=== PATIENT | female | born 1950 | race African-American/Black ===

== ENCOUNTER 2017-03-12 23:18 | Emergency (ER) | payer MEDICARE ==
[~2017-03-12] VITALS: Ht 157.5 cm; Wt 65.8 kg
[2017-03-13] VITALS: BP 81/39
[2017-03-13 00:28] LABS: BASOPHILS % (AUTO) 1.5 % (0.0-2.0); EOSINOPHILS % (AUTO) 0.1 % (0.0-3.0); LYMPHOCYTES % (AUTO) 6.1 % (20.0-45.0); MEAN CORPUSCULAR HEMOGLOBIN 26.4 PG (27.0-31.0); MEAN CORPUSCULAR HGB CONC 28.1 G/DL (32.0-36.0); MEAN CORPUSCULAR VOLUME 94 FL (80-99); MEAN PLATELET VOLUME 9.3 FL (6.5-10.1); MONOCYTES % (AUTO) 8.8 % (1.0-10.0); NEUTROPHILS % (AUTO) 83.6 % (45.0-75.0); PLATELET COUNT 170 K/UL (150-450); RED CELL DISTRIBUTION WIDTH 23.2 % (11.6-14.8); WHITE BLOOD COUNT 10.8 K/UL (4.8-10.8)
[2017-03-13 00:43] LABS: ANION GAP 10 mmol/L (5-15); CALCIUM 8.7 MG/DL (8.5-10.1); CARBON DIOXIDE 21 MMOL/L (21-32); CHLORIDE 94 MMOL/L (98-107); CREATININE 4.1 MG/DL (0.55-1.30); GLOMERULAR FILTRATION RATE 10.8 mL/min (>60); POTASSIUM 4.3 MMOL/L (3.5-5.1); SODIUM 125 MMOL/L (136-145)
[2017-03-13 00:51] LABS: INR 3.9 (0.9-1.1); PROTHROMBIN TIME 41.5 SEC (9.30-11.50)
[2017-03-13 00:57] LABS: ALANINE AMINOTRANSFERASE 24 U/L (12-78); ALBUMIN/GLOBULIN RATIO 0.6 (1.0-2.7); ASPARTATE AMINO TRANSFERASE 28 U/L (15-37); CKMB 2.4 NG/ML (0.0-3.6); TOTAL PROTEIN 5.8 G/DL (6.4-8.2)
[2017-03-13 02:00] VITALS: BP 105/86
--- NOTE | 2017-03-13 02:34 | Emergency Room Report ---
History of Present Illness General Chief Complaint: Dyspnea/Respdistress Source: Medical Record, EMS Present Illness HPI 67-year-old female with a history of renal failure on hemodialysis Monday, Monday, Monday. She also has history of bacteremia with warm abscesses. She presents with altered mental status with low oxygenation. History is limited in this patient because she poor historian. Also because of her condition. No noted fever. No nausea or vomiting. Unknown baseline. Allergies: Coded Allergies: NSAIDS (NON-STEROIDAL ANTI-INFLAMMA (Verified Allergy, Unknown, 03/12/17) Patient History Past Medical History: see triage record, old chart reviewed, HTN, renal disease , dialysis Past Surgical History: other Pertinent Family History: none Social History: Denies: smoking Now: No Immunizations: other Reviewed Nursing Documentation: PMH: Agreed, PSxH: Agreed Nursing Documentation-PMH Past Medical History Deferred: Patient Unconscious Hx Cardiac Problems: Yes - Atherosclerosis of aorta, heart failure Hx COPD: Yes Hx Diabetes: Yes - type 2 Hx Gastrointestinal Problems: Yes Review of Systems Constitutional: Reports: weakness Eye: Denies: eye pain, blurred vision ENT: Denies: ear pain, nose congestion, throat swelling Respiratory: Denies: cough, shortness of breath Cardiovascular: Denies: chest pain, palpitations Gastrointestinal: Denies: abdominal pain, diarrhea, nausea, vomiting Musculoskeletal: Denies: back pain, joint pain Skin: Denies: rash Neurological: Denies: headache, numbness Endocrine: Denies: increased thirst, increased urine Hematologic/Lymphatic: Denies: easy bruising All Other Systems: negative except mentioned in HPI Physical Exam Vital Signs Date Time Temp Pulse Resp B/P (MAP) Pulse Ox O2 Delivery O2 Flow Rate FiO2 03/12/17 23:01 76 18 81/39 100 Non-Rebreather 10.0 vitals with hypotension Sp02 EP Interpretation: reviewed, normal General Appearance: moderate distress, obese, Chronically Ill Head: normocephalic, atraumatic Eyes: bilateral eye PERRL, bilateral eye EOMI ENT: hearing grossly normal, normal pharynx Neck: full range of motion, supple, no meningismus Respiratory: chest non-tender, decreased breath sounds, rales Cardiovascular #1: no murmur, irregularly irregular Gastrointestinal: normal bowel sounds, non tender, no mass, no organomegaly, no bruit, non-distended Musculoskeletal: back normal, other - Right thigh wound: Is a large open wound that is packed. Good granulation tissue. No redness or drainage. Neurologic: other - Altered mental status Skin: warm/dry Medical Decision Making Diagnostic Impression: Primary Impression: Encephalopathy acute Additional Impressions: Acute exacerbation of CHF (congestive heart failure) Qualified Codes: I50.9 - Heart failure, unspecified Anemia Qualified Codes: D64.9 - Anemia, unspecified Hyponatremia ER Course Patient with a encephalopathy and weakness. This may be infectious cause. Lungs looks unremarkable. She is fluid overloaded. She did grow out MRSA and Klebsiella according to long term note. We'll put her on antibiotics. No evidence of ACS, PE, dissection. No TIA or CVA. Laboratory Tests Test 03/13/17 00:00 White Blood Count 10.8 K/UL (4.8-10.8) Red Blood Count 4.10 M/UL (4.20-5.40) L Hemoglobin 10.8 G/DL (12.0-16.0) L Hematocrit 38.5 % (37.0-47.0) Mean Corpuscular Volume 94 FL (80-99) Mean Corpuscular Hemoglobin 26.4 PG (27.0-31.0) L Mean Corpuscular Hemoglobin Concent 28.1 G/DL (32.0-36.0) L Red Cell Distribution Width 23.2 % (11.6-14.8) H Platelet Count 170 K/UL (150-450) Mean Platelet Volume 9.3 FL (6.5-10.1) Neutrophils (%) (Auto) 83.6 % (45.0-75.0) H Lymphocytes (%) (Auto) 6.1 % (20.0-45.0) L Monocytes (%) (Auto) 8.8 % (1.0-10.0) Eosinophils (%) (Auto) 0.1 % (0.0-3.0) Basophils (%) (Auto) 1.5 % (0.0-2.0) Prothrombin Time 41.5 SEC (9.30-11.50) H Prothromb Time International Ratio 3.9 (0.9-1.1) H Activated Partial Thromboplast Time 68 SEC (23-33) H Sodium Level 125 MMOL/L (136-145) L Potassium Level 4.3 MMOL/L (3.5-5.1) Chloride Level 94 MMOL/L (98-107) L Carbon Dioxide Level 21 MMOL/L (21-32) Anion Gap 10 mmol/L (5-15) Blood Urea Nitrogen 19 mg/dL (7-18) H Creatinine 4.1 MG/DL (0.55-1.30) H Estimat Glomerular Filtration Rate 10.8 mL/min (>60) Glucose Level 156 MG/DL (74-106) H Lactic Acid Level 1.50 mmol/L (0.66-2.22) Calcium Level 8.7 MG/DL (8.5-10.1) Total Bilirubin 0.6 MG/DL (0.2-1.0) Aspartate Amino Transf (AST/SGOT) 28 U/L (15-37) Alanine Aminotransferase (ALT/SGPT) 24 U/L (12-78) Alkaline Phosphatase 192 U/L (46-116) H Total Creatine Kinase 45 U/L (26-308) Creatine Kinase MB 2.4 NG/ML (0.0-3.6) Creatine Kinase MB Relative Index 5.3 Troponin I 0.010 ng/mL (0.000-0.056) Pro-B-Type Natriuretic Peptide Pending Total Protein 5.8 G/DL (6.4-8.2) L Albumin 2.2 G/DL (3.4-5.0) L Globulin 3.6 g/dL Albumin/Globulin Ratio 0.6 (1.0-2.7) L Lab Results Impression labs with low sodium EKG Diagnostic Results Rate: normal, other - afib Rhythm: other - afib ST Segments: no acute changes Rhythm Strip Diag. Results Rhythm Strip Time: 02:33 EP Interpretation: yes Rate: 72 Rhythm: no PVC's, no ectopy Chest X-Ray Diagnostic Results Chest X-Ray Diagnostic Results : Chest X-Ray Ordered: Yes # of Views/Limited/Complete: 1 View Indication: Shortness of Breath EP Interpretation: Yes Interpretation: no consolidation, no pneumothorax, other - CM with vasc congestion Impression: Other - chf CT/MRI/US Diagnostic Results CT/MRI/US Diagnostic Results : Imaging Test Ordered: CT head Impression negative per radiologist Last Vital Signs Date Time Temp Pulse Resp B/P (MAP) Pulse Ox O2 Delivery O2 Flow Rate FiO2 12/18/17 00:00 18 81/39 100 Non-Rebreather 10.0 03/13/17 00:00 76 Status: improved Disposition: XFER SHT-TRM HOSP Condition: Stable TRICE PARKER M.D. Mar 13, 2017 02:34
[2017-03-13] MEDS ORDERED: Piperacillin/Tazobactam 3.375 GM in NS 55 ML IVPB ONE (02:45)
[2017-03-13] MEDS ORDERED: Vancomycin 1 GM in NS 275 ML IVPB ONE (02:45)
[2017-03-13] MEDS ORDERED: Vancomycin 1gm inj IVPB ONE (02:53)
[2017-03-13] MEDS ORDERED: Zosyn 3.375gm inj ONE (02:54)
[2017-03-13 04:00] VITALS: BP 94/77
[2017-03-13] MEDS ORDERED: SPIRIVA INHALE1 PUF1 INH (04:10)
[2017-03-13] MEDS ORDERED: WARFARIN SODIUM2 MG ORAL (04:10)
[2017-03-13] MEDS ORDERED: ATORVASTATIN CA40 MG ORAL (04:10)
[2017-03-13] MEDS ORDERED: METRONIDAZOLE500 MG ORAL (04:10)
[2017-03-13] MEDS ORDERED: LISINOPRIL5 MG ORAL (04:10)
[2017-03-13] MEDS ORDERED: LD2JL30 TOPIC (04:10)
[2017-03-13] MEDS ORDERED: QVAR7.3 GM INH (04:10)
[2017-03-13] MEDS ORDERED: CIPROFLOXACIN500 MG PO (04:10)
[2017-03-13] MEDS ORDERED: BISOPROLOL-HCT1 EACH PO (04:10)
[2017-03-13] MEDS ORDERED: ASPIR 8181 MG ORAL (04:10)
[2017-03-13] MEDS ORDERED: NEPHRO-VITE RX1 EAC1 PO (04:10)
[2017-03-13] MEDS ORDERED: RENVELA0.8 GM ORAL (04:10)
[2017-03-13] MEDS ORDERED: VANCOMYCIN1 GM/2502 IVPB (04:10)
[2017-03-13] MEDS ORDERED: VENTOLIN HFA18 GM INH (04:10)
[2017-03-13 05:10] VITALS: BP 93/68
[2017-03-13 05:40] VITALS: BP 93/68
--- NOTE | 2017-03-13 08:57 | Diagnostic Imaging Report ---
Indication: Headache Technique: Contiguous 5 mm thick transaxial imaging of the head obtained in a Siemens Sensation [address] scanner. Soft tissue and bone windows generated. Automatic Exposure Control was utilized. Total Dose length Product (DLP): 1270.[address] Dose Index Volume (CTDIvol): 70.38 mGy Comparison: none Findings: There is mild prominence of the ventricles, basal cisterns, and cerebral sulci consistent with atrophy. Mild, nonspecific, white matter hypoattenuation is noted throughout the brain consistent with chronic small vessel disease. There is no midline shift, edema, acute hemorrhage, mass effect, or abnormal extra-axial fluid collections. Bones and extra osseous soft tissues are unremarkable. Impression: No acute intracranial bleed, mass effect or edema. Mild atrophy of the brain. Nonspecific white matter hypoattenuation probably due to chronic small vessel disease. [facility] has communicated the preliminary results to the Emergency Department. Their findings are largely concordant with this report. The CT scanner at [facility] is accredited by the [employer] and the scans are performed using dose optimization techniques as appropriate to a performed exam including Automatic Exposure control.
--- NOTE | 2017-03-13 12:45 | Diagnostic Imaging Report ---
Indication: Dyspnea Comparison: None A single view chest radiograph was obtained. Findings: There is enlargement of the cardiac silhouette with pulmonary vascular redistribution and prominence, hazy vessel margins and the suggestion of interstitial edema consistent with CHF. Right permacath noted. Aorta is calcified. Bones are osteopenic. IMPRESSION: Mild CHF
--- NOTE | 2017-03-18 00:28 | Cardiology Report ---
APPROVED REPORT EKG Measurement Heart [id number] Suspect arm lead reversal, interpretation assumes no reversal Atrial fibrillation Possible Right ventricular hypertrophy Septal infarct, age undetermined Lateral infarct, age undetermined Abnormal ECG
== END 2017-03-13 05:40 | disposition short-term general hospital (02) ==
LOC: EDBD 23:18 → EMR 03-13 02:31
DX: I13.2 Hypertensive heart and chronic kidney disease with heart failure and with stage 5 chronic kidney disease, or end stage renal disease (principal); E11.22 Type 2 diabetes mellitus with diabetic chronic kidney disease; N18.6 End stage renal disease; Z99.2 Dependence on renal dialysis; G93.40 Encephalopathy, unspecified; I50.9 Heart failure, unspecified; E87.70 Fluid overload, unspecified; D64.9 Anemia, unspecified; E87.1 Hypo-osmolality and hyponatremia; J44.9 Chronic obstructive pulmonary disease, unspecified; I70.0 Atherosclerosis of aorta; Z88.6 Allergy status to analgesic agent; I48.91 Unspecified atrial fibrillation
CPT/HCPCS: 36415; 70450; 71010; 80053; 82550; 82553; 83605; 83880; 84484; 85025; 85610; 85730; 87040; 93005; 96365; 96366; 96375; 99285; J2543; J3370; J7050